=== PATIENT | male | born 1965 | race Caucasian/White ===

== ENCOUNTER 2017-04-22 13:31 | Emergency (ER) | payer BC ==
[~2017-04-22] VITALS: Ht 165.1 cm; Wt 100.0 kg
[~2017-04-22 13:31] MED LIST: METF500T4 PO
[2017-04-22] MEDS ORDERED: SIMV-261 PO (13:48)
[2017-04-22] MEDS ORDERED: LISI-661 PO (13:48)
[2017-04-22 13:52] LABS: GLUCOSE,POINT OF CARE 174 MG/DL (70-110)
[2017-04-22 16:08] VITALS: BP 131/79
== END 2017-04-22 16:26 | disposition home or self-care (01) ==
LOC: EMS 13:35
DX: J20.9 Acute bronchitis, unspecified (principal); J06.9 Acute upper respiratory infection, unspecified; E11.9 Type 2 diabetes mellitus without complications; E78.00 Pure hypercholesterolemia, unspecified; I10 Essential (primary) hypertension
CPT/HCPCS: 71020; 82962; 99284

== ENCOUNTER 2017-07-10 22:37 | Emergency (ER) | payer BC ==
[~2017-07-10] VITALS: Ht 167.6 cm; Wt 100.0 kg
[~2017-07-10 22:37] MED LIST changes: +LISI-661 PO; +SIMV-261 PO
[2017-07-10 22:48] LABS: GLUCOSE,POINT OF CARE 148 MG/DL (70-110)
[2017-07-10] MEDS ORDERED: BACLOFEN 10 MG TABLET PO ONE (23:15)
[2017-07-10] MEDS ORDERED: ACETAMINOPHEN/CODEINE 300-30 MG TABLET PO ONE (23:15)
[2017-07-10 23:19] VITALS: BP 141/81
[2017-07-10 23:27] LABS: APPEARANCE,URINE CLEAR (CLEAR); GLUCOSE, URINE (UA) NEGATIVE (NEGATIVE); KETONES,URINE NEGATIVE (NEGATIVE); LEUKOCYTE ESTERASE ,URINE NEGATIVE (NEGATIVE); OCCULT BLOOD,URINE NEGATIVE (NEGATIVE); PROTEIN,URINE NEGATIVE (NEGATIVE)
[2017-07-10 23:30] LABS: ADD UA MICROSCOPIC NO
== END 2017-07-10 23:25 | disposition home or self-care (01) ==
LOC: EMS 22:39
DX: M54.5 Low back pain (principal); E11.9 Type 2 diabetes mellitus without complications; I10 Essential (primary) hypertension; E78.00 Pure hypercholesterolemia, unspecified
CPT/HCPCS: 82962; 99283

== ENCOUNTER 2023-08-18 09:10 | Emergency (ER) | payer BC, MEDICAID ==
[~2023-08-18] VITALS: Ht 165.1 cm; Wt 90.9 kg
[~2023-08-18 09:10] MED LIST changes: -LISI-661 PO; +LISI-893 PO; +METF-1211 PO; -METF500T4 PO
[2023-08-18 09:17] VITALS: TEMP 98.8
[2023-08-18 09:24] LABS: COVID AG,FIA SOURCE NASAL SWAB
[2023-08-18 10:00] LABS: RAPID GROUP A STREP NEGATIVE (NEGATIVE)
[2023-08-18 10:01] LABS: SARS-COV2 (COVID) ANTIGEN,FIA Negative (Negative)
[2023-08-18 10:02] LABS: INFLUENZA TYPE A NEGATIVE FOR TYPE A (NEGATIVE); INFLUENZA TYPE B NEGATIVE FOR TYPE B (NEGATIVE)
[2023-08-18] MEDS ORDERED: OXYMETAZOLINE HCL 0.05% 15 ML NASAL SPRAY NASAL ONE (11:30)
[2023-08-18] MEDS ORDERED: SEMA1PEN3 SQ (11:33)
[2023-08-18] MEDS ORDERED: SITA100 PO (11:33)
[2023-08-18] MEDS ORDERED: LISI20TA24 PO (11:33)
[2023-08-18] MEDS ORDERED: BENZ-227 PO (12:56)
[2023-08-18 13:00] VITALS: BP 138/88; PULSE 90; RESP 12
== END 2023-08-18 13:37 | disposition home or self-care (01) ==
LOC: EMS 09:29
DX: J06.9 Acute upper respiratory infection, unspecified (principal); E11.9 Type 2 diabetes mellitus without complications; I10 Essential (primary) hypertension; Z98.890 Other specified postprocedural states; Z88.2 Allergy status to sulfonamides; Z20.822 Contact with and (suspected) exposure to COVID-19
CPT/HCPCS: 99284; 71046; 87426; 82962; 87430; 87804; C9803

== ENCOUNTER 2023-10-27 11:25 | Emergency (ER) | payer MEDICAID ==
[~2023-10-27] VITALS: Ht 165.1 cm; Wt 91.0 kg
[~2023-10-27 11:25] MED LIST changes: +BENZ-227 PO; -LISI-893 PO; +LISI20TA24 PO; +SEMA1PEN3 SQ; -SIMV-261 PO; +SITA100 PO
[2023-10-27 11:53] LABS: COVID AG,FIA SOURCE NASAL SWAB
[2023-10-27 12:23] LABS: INFLUENZA TYPE A NEGATIVE FOR TYPE A (NEGATIVE); INFLUENZA TYPE B NEGATIVE FOR TYPE B (NEGATIVE)
[2023-10-27 12:24] LABS: SARS-COV2 (COVID) ANTIGEN,FIA Negative (Negative)
[2023-10-27 13:01] LABS: BASOPHILS % (AUTO) 0.3 % (0.0-2.0); EOSINOPHILS % (AUTO) 1.5 % (1.0-6.0); HEMATOCRIT 38.8 % (41-53); HEMOGLOBIN 13.4 g/dL (13.5-17.5); LYMPHOCYTES # (AUTO) 2.5 K/uL (1.0-4.8); LYMPHOCYTES % (AUTO) 29.7 % (22.0-44.0); MEAN CORPUSCULAR HEMOGLOBIN 30.7 pg (26.0-34.0); MEAN CORPUSCULAR HGB CONC 34.5 G/dL (31.0-37.0); MEAN CORPUSCULAR VOLUME 89 fL (80-100); MONOCYTES # (AUTO) 0.6 K/uL (0.1-1.0); MONOCYTES % (AUTO) 7.4 % (2.0-9.0); NEUTROPHILS # (AUTO) 5.2 K/uL (1.8-7.7); NEUTROPHILS % (AUTO) 61.1 % (40.0-70.0); PLATELET COUNT (AUTO) 231 K/uL (150-450); RED BLOOD CELL COUNT(AUTO) 4.37 MIL/uL (4.50-5.90); RED CELL DISTRIBUTION WIDTH 14.1 % (11.5-14.5); WHITE BLOOD COUNT (AUTO) 8.5 K/uL (4.5-11.0)
[2023-10-27 13:10] LABS: ANION GAP 4 mmol/L (8-16); CALCIUM, TOTAL 8.3 mg/dL (8.8-10.5); CARBON DIOXIDE 28 mmol/L (22-29); CHLORIDE 105 mmol/L (98-107); CREATININE 0.85 mg/dL (0.60-1.30); GLOMERULAR FILTR. RATE CALC > 60 mL/min (>60); GLUCOSE,RANDOM 129 mg/dL (70-110); POTASSIUM 3.7 mmol/L (3.5-5.1); SODIUM SERUM 137 mmol/L (136-145); UREA NITROGEN, BLOOD 11 mg/dL (7-18)
[2023-10-27 13:17] LABS: TROPONIN I-HIGH SENSITIVITY 5 ng/L (<76)
[2023-10-27 13:22] LABS: B-TYPE NATRIURETIC PEPTIDE 18 pg/mL (0-100)
[2023-10-27 13:24] LABS: ALANINE AMINOTRANSFERASE 53 U/L (12-78); ALBUMIN 3.2 g/dL (3.4-5.0); ALKALINE PHOSPHATASE 83 U/L (46-116); ASPARTATE AMINOTRANSFERASE 46 U/L (15-37); BILIRUBIN,TOTAL 0.4 mg/dL (0.1-1.0)
[2023-10-27 15:39] VITALS: TEMP 98
[2023-10-27] MEDS ORDERED: BENZ-227 PO (15:40)
[2023-10-27] MEDS ORDERED: ALBUTEROL SULFATE HFA 90 MCG/PUFF 8 GM INHALER IH ONE (15:45)
[2023-10-27 15:50] VITALS: PULSE 85; RESP 18; O2SAT 97
[2023-10-27 16:06] VITALS: BP 148/76; PULSE 87; RESP 19
== END 2023-10-27 16:08 | disposition home or self-care (01) ==
LOC: EMS 11:26
DX: J06.9 Acute upper respiratory infection, unspecified (principal); E11.9 Type 2 diabetes mellitus without complications; I10 Essential (primary) hypertension; Z98.890 Other specified postprocedural states; Z88.2 Allergy status to sulfonamides; Z20.822 Contact with and (suspected) exposure to COVID-19
CPT/HCPCS: 99285; 71045; 87426; 80053; 83880; 84484; 85025; 87804; 36415; 94640; 93005; J3535